=== PATIENT | female | born 1975 | race African-American/Black ===

== ENCOUNTER 2021-01-03 17:39 | Emergency (ER) | payer BC, OTHER | END 2021-01-03 18:18 | disposition home or self-care (01) | LOC: NAV ERS 17:39 | DX: S63.602A Unspecified sprain of left thumb, initial encounter (principal); W19.XXXA Unspecified fall, initial encounter ==

== ENCOUNTER 2024-06-20 19:28 | Emergency (ER) | payer BC, SELFPAY | END 2024-06-20 21:52 | disposition home or self-care (01) | LOC: NAV ERS 19:28 | DX: B86 Scabies (principal) | CPT/HCPCS: 99282 ==